=== PATIENT | female | born 1995 | race African-American/Black ===

== ENCOUNTER 2022-02-20 13:15 | Emergency (ER) | payer SELFPAY ==
[2022-02-20] MEDS ORDERED: Sodium Chloride 0.9% 10 ML Syringe FLUSH PRN (13:32)
[2022-02-20] MEDS ORDERED: Ondansetron 4 MG/2 ML SDV IVPUSH ONE (13:32)
[2022-02-20] MEDS ORDERED: Sodium Chloride 0.9% 1,000 ML IV ONE (13:32)
[2022-02-20] MEDS ORDERED: Sodium Chloride 0.9% 2.5 ML Syringe FLUSH PRN (13:32)
[2022-02-20 14:08] LABS: BLOOD UREA NITROGEN,BUN 10 mg/dL (7.0-18.0); CARBON DIOXIDE,CO2 26.5 mmol/L (21.0-32.0); CHLORIDE,CL 104 mmol/L (98-107); GLUCOSE RANDOM 119 mg/dL (74-106); LIPASE 62 U/L (73-393); POTASSIUM,K 3.7 mmol/L (3.5-5.1); SODIUM,NA 139 mmol/L (136-145)
== END 2022-02-20 15:53 | disposition home or self-care (01) ==
LOC: MW.ED 13:15
DX: D50.9 Iron deficiency anemia, unspecified (principal); R11.10 Vomiting, unspecified
CPT/HCPCS: 36415; 80053; 81001; 83690; 84703; 85025; 96361; 96374; 99284; J2405; J3490; J7030

== ENCOUNTER 2022-04-10 13:18 | Emergency (ER) | payer SELFPAY | END 2022-04-10 15:20 | disposition left against medical advice (07) | LOC: MW.ED 13:18 | DX: Z53.21 Procedure and treatment not carried out due to patient leaving prior to being seen by health care provider (principal) ==

== ENCOUNTER 2022-04-10 15:30 | Emergency (ER) | payer SELFPAY | END 2022-04-10 16:50 | disposition left against medical advice (07) | LOC: MW.ED 15:30 | DX: Z53.21 Procedure and treatment not carried out due to patient leaving prior to being seen by health care provider (principal) | CPT/HCPCS: 81003; 81025 ==

== ENCOUNTER 2022-04-11 17:04 | Emergency (ER) | payer SELFPAY | END 2022-04-11 19:00 | disposition home or self-care (01) | LOC: MW.ED 17:04 | DX: N91.1 Secondary amenorrhea (principal) | CPT/HCPCS: 36415; 84703; 99282; 99283 ==

== ENCOUNTER 2022-05-25 17:48 | Emergency (ER) | payer MEDICAID | END 2022-05-26 02:44 | disposition home or self-care (01) | LOC: MW.ED 17:48 | DX: O20.0 Threatened abortion (principal); Z86.16 Personal history of COVID-19 | CPT/HCPCS: 36415; 76817; 76817-26; 84702; 99284 ==

== ENCOUNTER 2022-06-27 08:07 | Emergency (ER) | payer MEDICAID | END 2022-06-27 09:42 | disposition home or self-care (01) | LOC: MW.ED 08:07 | DX: O99.891 Other specified diseases and conditions complicating pregnancy (principal); R10.9 Unspecified abdominal pain; Z3A.09 9 weeks gestation of pregnancy | CPT/HCPCS: 81003; 99283; 99284 ==

== ENCOUNTER 2022-07-12 21:33 | Emergency (ER) | payer MEDICAID ==
[2022-07-12] MEDS ORDERED: Acetaminophen 325 MG Tab PO ONE (22:25)
[2022-07-12] MEDS ORDERED: Acetaminophen 325 MG Tab ONE ×2 (22:31→22:32)
== END 2022-07-12 23:53 | disposition home or self-care (01) ==
LOC: MW.ED 21:33
DX: O26.891 Other specified pregnancy related conditions, first trimester (principal); R10.32 Left lower quadrant pain; Z3A.11 11 weeks gestation of pregnancy; Z79.899 Other long term (current) drug therapy; Z86.16 Personal history of COVID-19
CPT/HCPCS: 99284; A9270; 99283

== ENCOUNTER 2022-07-21 11:19 | Emergency (ER) | payer MEDICAID ==
[2022-07-21] MEDS ORDERED: Sodium Chloride 0.9% 1,000 ML IV ONE (11:33)
[2022-07-21] MEDS ORDERED: Ondansetron 4 MG/2 ML SDV IVPUSH ONE (12:28)
[2022-07-21 12:49] LABS: CARBON DIOXIDE,CO2 23.4 mmol/L (21.0-32.0); POTASSIUM,K 3.9 mmol/L (3.5-5.1)
[2022-07-21 14:04] LABS: CORONAVIRUS COVID-19 NAA NEGATIVE (NEGATIVE); INFLUENZA A NAA NEGATIVE (NEGATIVE); INFLUENZA B NAA NEGATIVE (NEGATIVE)
== END 2022-07-21 14:50 | disposition home or self-care (01) ==
LOC: MW.ED 11:19
DX: O21.9 Vomiting of pregnancy, unspecified (principal); D50.9 Iron deficiency anemia, unspecified; Z3A.13 13 weeks gestation of pregnancy; Z20.822 Contact with and (suspected) exposure to COVID-19
CPT/HCPCS: 0240U; 36415; 80053; 81003; 84702; 85025; 86900; 86901; 96361; 96374; 99284; J2405; J7030

== ENCOUNTER 2022-07-28 06:24 | Emergency (ER) | payer MEDICAID | END 2022-07-28 08:00 | disposition home or self-care (01) | LOC: MW.ED 06:24 | DX: O99.511 Diseases of the respiratory system complicating pregnancy, first trimester (principal); J06.9 Acute upper respiratory infection, unspecified; Z3A.14 14 weeks gestation of pregnancy; Z20.822 Contact with and (suspected) exposure to COVID-19 | CPT/HCPCS: 99283; U0002 ==